=== PATIENT | female | born 1935 | race Caucasian/White ===

== ENCOUNTER 2016-12-27 18:54 | Emergency (ER) | payer MEDICARE, MEDICAID ==
[~2016-12-27] VITALS: Wt 46.0 kg
[~2016-12-27 18:54] MED LIST: AMLO-145 PO; ATOR10TA23 PO; HYDR25TA6 PO
[2016-12-27] MEDS ORDERED: FAMOTIDINE 20 MG TAB PO ONE (21:00)
[2016-12-27] MEDS ORDERED: predniSONE 20 MG TAB PO ONE (21:00)
[2016-12-27] MEDS ORDERED: DIPHENHYDRAMINE 25 MG CAP PO ONE (21:00)
[2016-12-27] MEDS ORDERED: BEN25 PO (21:22)
[2016-12-27] MEDS ORDERED: PRED20TA PO (21:23)
[2016-12-27] MEDS ORDERED: FAMO-18 PO (21:23)
--- NOTE | 2016-12-27 21:28 | ERD ---
ER Documentation Chief Complaint Date/Time DATE: 12/27/16 TIME: 21:24 Chief Complaint BILATERAL ARM RASH FOR 2 DAYS WITH NO STRIDOR OR SOB. HPI This is a 81-year-old female who presents to the emergency department today complaining of a rash over her arms and legs and chest that started yesterday. Patient states she took 25 mg of Benadryl today. Denies any new medications, new foods or new detergents. Denies any fevers or chills, chest pain or shortness of breath or difficulty breathing. ROS All systems reviewed and are negative except as per history of present illness. Medications Home Meds Active Scripts Prednisone* (Prednisone*) 20 Mg Tab, 40 MG PO DAILY for 4 Days, TAB Prov:EARL BROOKS PA-C 12/27/16 Famotidine* (Pepcid*) 20 Mg Tablet, 20 MG PO BID for 7 Days, TAB Prov:EARL BROOKS PA-C 12/27/16 Diphenhydramine Hcl* (Benadryl*) 25 Mg Cap, 25 MG PO Q6, #30 CAP Prov:EARL BROOKS PA-C 12/27/16 Reported Medications Amlodipine Besylate* (Amlodipine Besylate*) 5 Mg Tablet, PO DAILY 12/19/12 Atorvastatin (Lipitor) 10 Mg Tablet, PO DAILY 12/19/12 Hydrochlorothiazide (Hydrochlorothiazide) 25 Mg Tablet, PO DAILY 12/19/12 Allergies Allergies: Coded Allergies: No Known Allergy (Unverified , 12/19/12) PMhx/Soc History of Surgery: No Anesthesia Reaction: No Hx Neurological Disorder: No Hx Respiratory Disorders: No Hx Cardiac Disorders: Yes (hypertension) Hx Psychiatric Problems: No Hx Miscellaneous Medical Probl: No (HTN,^chol,smoker) Hx Alcohol Use: No Hx Substance Use: No Hx Tobacco Use: Yes (OCCASIONAL) Smoking Status: Never smoker Physical Exam Vitals Vital Signs Date Time Temp Pulse Resp B/P Pulse Ox O2 Delivery O2 Flow Rate FiO2 12/27/16 19:05 98.9 82 21 127/73 100 Physical Exam Const: Talkative, no acute distress Head: Atraumatic Eyes: Normal Conjunctiva ENT: Normal External Ears, Nose and Mouth. No lip swelling. Neck: Full range of motion..~ No meningismus. Resp: Clear to auscultation bilaterally Cardio: Regular rate and rhythm, no murmurs Abd: Soft, non tender, non distended. Normal bowel sounds Skin: Diffuse urticaria over anterior chest, bilateral arms and legs. No evidence of cellulitis or purulent drainage. Neur: Awake and alert Psych: Normal Mood and Affect Results 24 hrs Current Medications Medications (Trade) Dose Ordered Sig/Delma Route PRN Reason Start Time Stop Time Status Last Admin Dose Admin Diphenhydramine HCl (Benadryl) 25 mg ONCE ONCE PO 12/27/16 21:00 12/27/16 21:01 DC 12/27/16 21:04 Prednisone (Prednisone) 60 mg ONCE ONCE PO 12/27/16 21:00 12/27/16 21:01 DC 12/27/16 21:04 Famotidine (Pepcid) 20 mg ONCE ONCE PO 12/27/16 21:00 12/27/16 21:01 DC 12/27/16 21:04 Procedures/MDM This 81-year-old female who presents to the emergency department today for a rash that started yesterday. On physical exam patient has diffuse urticaria. I did see this patient in the [facility] area and she is only taking 25 mg of Benadryl with no improvement. Patient was seen again by myself the main area of the emergency department the patient really had not had much improvement with the Benadryl. I did give her another dose of Benadryl as well as prednisone and Pepcid here. Patient is afebrile and otherwise well-appearing. Her oxygen saturations 100%. She is talkative in the exam room.. She is in no acute distress. Low suspicion for angioedema or anaphylaxis. Low suspicion for cellulitis or deep space infection, meningitis, sepsis. I was going to the patient that she does need to follow-up with her primary care physician for possible referral to dermatology. Patient understood. She will be discharged home on Benadryl, Pepcid and a short course of prednisone At this time the patient is stable for discharge and outpatient management. Patient should follow up with their PCP in the next 1-2 days. They may return to the emergency department sooner for any persistent or worsening of symptoms. Patient understood and agreed with the plan. Dr. Lombardo has seen and evaluated the patient and is in agreement with the plan. Departure Diagnosis: Primary Impression: Rash and other nonspecific skin eruption Condition: Fair Patient Instructions: Self-Care for Skin Rashes, When Your Child Has Hives ( Urticaria) or Angioedema Referrals: your PCP AMAN GONZALEZ MD,MARY ANN REDMAN,DARLEEN HOUSER,[place]LANDO JOY,MARTHA ROMAN,MICKEY TRIANA Additional Instructions: Call your primary care doctor TOMORROW for an appointment during the next 1-2 days for further evaluation and possible referral to dermatology.See the doctor sooner or return here if your condition worsens before your appointment time. Take Benadryl as needed for itching Take all other medications as prescribed EARL BROOKS PA-C Dec 27, 2016 21:28
[2016-12-27 22:51] VITALS: BP 120/78; PULSE 78; RESP 18; TEMP 98
== END 2016-12-27 22:52 | disposition home or self-care (01) ==
LOC: FTE 18:54
DX: R21 Rash and other nonspecific skin eruption (principal); I10 Essential (primary) hypertension; Z87.891 Personal history of nicotine dependence
CPT/HCPCS: 99283; J7512